=== PATIENT | male | born 1990 | race African-American/Black ===

== ENCOUNTER 2019-05-05 11:04 | Emergency (ER) | payer BC ==
[~2019-05-05] VITALS: Ht 165.1 cm; Wt 63.5 kg
[~2019-05-05 11:04] MED LIST: ALLEGRA-D 24 H1 EACH
[2019-05-05 12:11] LABS: ABSOLUTE NEUTROPHILS 10.4 thou/uL (1.4-8.2); BASOPHILS 0.1 % (0.0-2.0); EOSINOPHILS 0.4 % (0.0-3.0); HEMATOCRIT 43.2 % (42.0-52.0); HEMOGLOBIN 14.7 gm/dL (14.0-18.0); LYMPHOCYTES 6.5 % (24.0-44.0); MCH 30.3 pg (26.0-34.0); MONOCYTES 9.6 % (1.0-8.0); PLATELET COUNT 287 thou/uL (150-400); POLYS 83.4 % (36.0-66.0); RBC 4.86 mil/uL (4.50-6.00); RDW 13.5 % (10.5-14.5); WBC 12.5 thou/uL (4.0-11.0)
[2019-05-05 12:23] LABS: CALCIUM 9.7 mg/dL (8.5-10.1); CREATININE 1.1 mg/dL (0.7-1.3); POTASSIUM 3.5 mmol/L (3.5-5.1)
[2019-05-05 12:30] LABS: ALBUMIN 4.6 g/dL (3.4-5.0); TOTAL BILIRUBIN 0.9 mg/dL (<0.1-1.0); TOTAL PROTEIN 8.7 g/dL (6.4-8.2)
[2019-05-05 15:28] VITALS: BP 118/74
--- NOTE | 2019-05-05 16:42 | EKG ---
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 : 1990 Requested By: Maddison Nina Order Number: [id number] MD: Abram Hallman Measurements Intervals [place] Rate: 95 P: 78 MO: 145 QRS: 66 QRSD: 80 T: 48 QT: 320 QTc: 403 Interpretive Statements Sinus rhythm No previous ECG available for comparison Electronically Signed On 05-05-2019 16:42:42 CDT by Abram Hallman [email or web address] ��������������������������������������������� <ELECTRONICALLY SIGNED> ���������������������������������������� By: Abram Hallman MD ��������������������������������������������� 05/05/19 1642 1110 1110 Abram Hallman MD /EPI
== END 2019-05-05 15:33 | disposition home or self-care (01) ==
LOC: ER 11:04
PROVIDERS: Nurse Practitioner
DX: R07.89 Other chest pain (principal)